=== PATIENT | male | born 2000 | race Caucasian/White ===

== ENCOUNTER 2020-01-14 10:16 | Emergency (ER) | payer BC, SELFPAY ==
[2020-01-14 10:22] VITALS: BP 124/76; PULSE 64; RESP 16; TEMP 36.7; O2SAT 98
[2020-01-14 10:37] LABS: Basophils Percent Auto 0.3 % (0.2-1.2); Eosinophils Absolute Auto 0.1 K/mm3 (0-0.3); Eosinophils Percent Auto 1.2 % (0-4.4); Hematocrit 45.4 % (42.0-52.0); Hemoglobin 16.2 g/dL (14.0-18.0); Immature Granulocyte Absolute 0.02 K/mm3 (0.00-0.031); Immature Granulocyte Percent A 0.3 % (0-0.5); Lymphocytes Absolute Auto 1.77 K/mm3 (0.9-3.2); Lymphocytes Percent Auto 22.8 % (18.3-44.2); Mean Corpuscular HGB Conc 35.7 g/dl (32-36); Mean Corpuscular Hemoglobin 29.9 pg (26-34); Mean Corpuscular Volume 83.9 fl (80-100); Mean Platelet Volume 10.2 fl (7.4-10.4); Monocytes Absolute Auto 0.7 K/mm3 (0.1-0.6); Monocytes Percent Auto 8.9 % (2.6-8.5); Neutrophils Absolute Auto 5.2 K/mm3 (1.3-6.7); Neutrophils Percent Auto 66.5 % (45.5-73.1); Platelet Count Result 275 k/mm3 (150-375); Red Blood Count 5.41 M/mm3 (4.6-6.20); Red Cell Distribution Width 12.2 % (11.5-14.5); White Blood Count 7.8 K/mm3 (4.5-10.0)
[2020-01-14 10:47] LABS: INR 1.1; Prothrombin Time 13.4 Seconds (11.1-14.7)
[2020-01-14 10:48] LABS: Partial Thromboplastin Time 28.9 SECONDS (22.3-36.8)
[2020-01-14 10:52] LABS: Alanine Aminotransferase 87 U/L (4-50); Albumin Level 4.7 g/dL (3.7-5.6); Alkaline Phosphatase 74 U/L (58-237); Anion Gap 8 mmol/L (8-16); Aspartate Amino Transferase 41 U/L (17-59); Bilirubin,Total 0.4 mg/dL (0.2-1.3); Blood Urea Nitrogen 12 mg/dL (8-21); Calcium 8.7 mg/dL (8.9-10.7); Carbon Dioxide 26 mmol/L (22-30); Chloride 105 mmol/L (98-107); Estimated CRCL calculation 151 ml/min; Estimated Glomerular Filt Rate > 60; Glucose 95 mg/dL (75-110); Potassium 4.1 mmol/L (3.4-5.0); Sodium 139 mmol/L (134-143)
[2020-01-14 11:55] VITALS: BP 129/72; PULSE 73; RESP 18; TEMP 37.2; O2SAT 97
[2020-01-14 12:11] VITALS: BP 120/69; PULSE 71
[2020-01-14 12:12] VITALS: BP 128/84; BP 132/82; PULSE 74; PULSE 80
--- NOTE | 2020-01-14 12:25 | ED.GENADULT ---
HPI - General Adult General Chief complaint: GI Bleed <Dinh Flanagan PA-C - Last Filed: 01/14/20 13:08> Stated complaint: possible internal issues <Dinh Flanagan PA-C - Last Filed: 01/14/20 13:08> Time Seen by Provider: 01/14/20 12:08 <Dinh Flanagan PA-C - Last Filed: 01/14/20 13:08> Source: patient <Dinh Flanagan PA-C - Last Filed: 01/14/20 13:08> Mode of arrival: ambulatory <Dinh Flanagan PA-C - Last Filed: 01/14/20 13:08> Limitations: no limitations <Dinh Flanagan PA-C - Last Filed: 01/14/20 13:08> History of Present Illness HPI narrative: Patient is a 19-year-old male who presents to emergency department for evaluation of rectal bleeding noticed over the last couple of days patient notes he has been constipated and straining has had a similar occurrence in the past patient does also note he has a history of external hemorrhoids secondary to constipation and straining patient does not have a primary care doctor or specialist and has not taken anything for his symptoms patient denies any pain patient presents in no distress and does not appear uncomfortable <Dinh Flanagan PA-C - Last Filed: 01/14/20 13:08> Related Data Allergies/adverse reactions: Allergies Allergy/AdvReac Type Severity Reaction Status Date / Time No Known Allergies Allergy Verified 01/14/20 12:09 <Dinh Flanagan PA-C - Last Filed: 01/14/20 13:08> Review of Systems Review of Systems: All systems reviewed & are unremarkable except as noted in HPI and below <Dinh Flanagan PA-C - Last Filed: 01/14/20 13:08> PMFSH Social History Social History: Social History (Updated 01/14/20 @ 12:25 by Dinh Flanagan PA-C) Smoking status: Never smoker Gender identity (if verbalized by the patient): Male <JOSUÉ Guajardo Last Filed: 01/14/20 13:08> Exam Narrative: Exam Narrative: GENERAL: Well-appearing, well-nourished, and in no acute distress. HEAD: Normocephalic, atraumatic. EYES: PERRLA and EOMI. ENT: Nares clear, no rhinorrhea or epistaxis. Mucous membranes moist. Oropharynx without tonsillar hypertrophy exudate or other lesions. Bilateral TMs pearly nelson nonbulging NECK: Supple. No adenopathy or masses. No carotid bruits or JVD CHEST: Clear to auscultation. No respiratory distress. No wheezes rales or rhonchi HEART: Regular rate and rhythm. No murmur heard. Normal peripheral pulses. ABDOMEN: Soft, nontender, nondistended, normal active bowel sounds. EXTREMITIES: Normal range of motion. No edema. SKIN: Warm, dry, no rash. NEURO: No focal deficits. Alert and oriented x3. PSYCH: Normal mood and affect. <JOSUÉ Guajardo Last Filed: 01/14/20 13:08> Course Course Emergency Course: No high risk changes in the orthostatic blood pressure or laboratory findings patient was made aware of these <JOSUÉ Guajardo Last Filed: 01/14/20 13:08> Vital Signs Vital signs: Vital Signs Temperature 36.7 C 01/14/20 10:22 Pulse Rate 64 01/14/20 10:22 Respiratory Rate 16 01/14/20 10:22 Blood Pressure 124/76 01/14/20 10:22 Pulse Oximetry 98 01/14/20 10:22 Temperature 37.2 C 01/14/20 11:55 Pulse Rate 60 01/14/20 13:38 Respiratory Rate 16 01/14/20 13:38 Blood Pressure 117/77 01/14/20 13:38 Pulse Oximetry 97 01/14/20 13:38 <JOSUÉ Guajardo Last Filed: 01/14/20 13:08> Vital Signs Temperature 36.7 C 01/14/20 10:22 Pulse Rate 64 01/14/20 10:22 Respiratory Rate 16 01/14/20 10:22 Blood Pressure 124/76 01/14/20 10:22 Pulse Oximetry 98 01/14/20 10:22 Temperature 37.2 C 01/14/20 11:55 Pulse Rate 60 01/14/20 13:38 Respiratory Rate 16 01/14/20 13:38 Blood Pressure 117/77 01/14/20 13:38 Pulse Oximetry 97 01/14/20 13:38 <Mckenna Loyd MD - Last Filed: 01/14/20 14:33> Medical Decision Making MDM Narrative Medical decision making narrative: Pat
[2020-01-14 13:38] VITALS: BP 117/77; PULSE 60; RESP 16; O2SAT 97
== END 2020-01-14 13:41 | disposition home or self-care (01) ==
PROVIDERS: Emergency Provider Emergency Medicine; PCP Pediatrics
DX: K62.5 Hemorrhage of anus and rectum (principal)
CPT/HCPCS: 36415; 80053; 85025; 85610; 85730; 86850; 86900; 86901; 99283

== ENCOUNTER 2022-06-09 13:49 | Emergency (ER) | payer OTHER, SELFPAY ==
--- NOTE | ~2022-06-09 | XR_ITS ---
EXAMINATION: XR chest 2V DATE: 06/09/2022 14:06 INDICATION: Chest pain TECHNIQUE: Frontal and lateral views of the chest are obtained COMPARISON: None available FINDINGS: The lungs are free of acute opacities. No pleural effusion or pneumothorax. The cardiomedia stinal silhouette is normal. The visualized bones and soft tissues are unremarkable. IMPRESSION: 1. No acute cardiopulmonary abnormality. Reviewed, dictated and finalized at location A. CCO EDUCATOR
--- NOTE | 2022-06-09 13:50 | ECG_ITS ---
Measurements Intervals Adrian Rate: 75 P: 37 CT: 135 QRS: 90 QRSD: 117 T: 44 QT: 362 QTc: 404 Interpretive Statements SINUS RHYTHM WITH SINUS ARRHYTHMIA INCOMPLETE RIGHT BUNDLE BRANCH BLOCK [90+ ms QRS DURATION, TERMINAL R IN V1/V2, 40+ ms S IN I/aVL/V4/V5/V6] BORDERLINE ECG NO PREVIOUS ECG AVAILABLE FOR COMPARISON Electronically Signed On 06-10-2022 11:53:49 [employer] APPLICATION ENGINEER by All Hernandez M.D.
[2022-06-09 14:07] VITALS: BP 135/73; PULSE 78; RESP 16; TEMP 36.8; O2SAT 99
[2022-06-09 14:17] LABS: Basophils Percent Auto 0.2 % (0.2-1.2); Eosinophils Percent Auto 0.2 % (0-4.4); Hematocrit 48.3 % (42.0-52.0); Hemoglobin 16.7 g/dL (14.0-18.0); Immature Granulocyte Absolute 0.01 K/mm3 (0.00-0.031); Immature Granulocyte Percent A 0.1 % (0-0.5); Lymphocytes Absolute Auto 1.57 K/mm3 (0.9-3.2); Lymphocytes Percent Auto 17.3 % (18.3-44.2); Mean Corpuscular HGB Conc 34.6 g/dl (32-36); Mean Corpuscular Volume 86.9 fl (80-100); Mean Platelet Volume 9.6 fl (7.4-10.4); Monocytes Absolute Auto 0.6 K/mm3 (0.1-0.6); Monocytes Percent Auto 6.6 % (2.6-8.5); Neutrophils Absolute Auto 6.8 K/mm3 (1.3-6.7); Neutrophils Percent Auto 75.6 % (45.5-73.1); Platelet Count Result 292 k/mm3 (150-375); Red Blood Count 5.56 M/mm3 (4.6-6.20); Red Cell Distribution Width 12.4 % (11.5-14.5); White Blood Count 9.1 K/mm3 (4.5-10.0)
[2022-06-09 14:27] LABS: Alanine Aminotransferase 48 U/L (6-50); Albumin Level 4.8 g/dL (3.5-5.1); Alkaline Phosphatase 55 U/L (38-126); Anion Gap 6 mmol/L (8-16); Aspartate Amino Transferase 27 U/L (17-59); Bilirubin,Total 0.5 mg/dL (0.2-1.3); Blood Urea Nitrogen 8 mg/dL (9-20); Calcium 8.9 mg/dL (8.4-10.2); Carbon Dioxide 31 mmol/L (22-30); Chloride 98 mmol/L (98-107); Estimated CRCL calculation 148 ml/min; Estimated Glomerular Filt Rate > 60; Glucose 115 mg/dL (65-110); Lipase 80 U/L (23-300); Potassium 3.8 mmol/L (3.4-5.0); Sodium 135 mmol/L (137-145)
[2022-06-09 14:28] LABS: INR 1.1; Prothrombin Time 13.5 Seconds (11.1-14.7)
[2022-06-09 14:29] LABS: Partial Thromboplastin Time 27.3 SECONDS (22.3-36.8)
[2022-06-09 14:39] LABS: Troponin I < 0.012 ng/mL (0.000-0.034)
[2022-06-09 16:21] VITALS: BP 132/79; PULSE 89; RESP 16; O2SAT 100
[2022-06-09 16:22] VITALS: PULSE 89
--- NOTE | 2022-06-09 16:25 | ED.CHESTPAIN ---
HPI - Chest Pain General Chief Complaint: Chest Pain Stated Complaint: chest pain since last night Time Seen by Provider: 06/09/22 16:04 History of Present Illness HPI narrative: Patient is a 22-year-old male here for evaluation of chest pain over the past day. Patient states that he was at rest when he developed a central chest pressure that has been constant in nature since. He states that this was associated with palpitations and mild shortness of breath. He denies a history of previous similar sensation. He has had no fever, chills, nausea, vomiting, leg swelling, or rash. He was in his usual state of health yesterday before the pain developed. He does state that he smoked marijuana last night. No family history of sudden cardiac /cardiac disease. Related Data Allergies Allergy/AdvReac Type Severity Reaction Status Date / Time No Known Allergies Allergy Verified 06/09/22 14:09 Review of Systems Review of Systems: Gen: Denies fevers or chills Eyes: Denies eye pain or visual change ENT: Denies congestion Respiratory: Reports shortness of breath CV: Reports chest pain GI: Denies abdominal pain nausea, emesis or diarrhea denies burning, urgency, frequency or hematuria Musculoskeletal: Denies back pain or muscle pain Neuro: Denies numbness, tingling, weakness or focal weakness Skin: Denies rash Except as documented, all other systems reviewed and negative PMFSH Social History Social History (Updated 01/14/20 @ 12:25 by Dinh Flanagan, JOSUÉ) Smoking status: Never smoker Gender identity (if verbalized by the patient): Male Exam Narrative: APPEARANCE: Well appearing, no pain in distress, well-nourished. Head: Normocephalic and atraumatic. EYES: PERRLA/EOMI, conjunctivae clear NOSE: No nasal drainage EARS: External ear normal in appearance THROAT: Oropharynx is clear. Mucous membranes are moist. NECK: Supple. No adenopathy, no masses. RESPIRATORY: Airway patent, respirations nonlabored. Clear to auscultation bilaterally, no rales, rhonchi, wheezing. CARDIOVASCULAR: Regular rate and rhythm without murmurs, rubs, or gallops. ABDOMINAL: Normoactive bowel sounds. Soft, nontender, nondistended. No rebound tenderness or guarding. MUSCULOSKELETAL: No reproducible chest pain on palpation of the thorax. Extremities are warm and well-perfused. Moves all extremities well. No edema. NEURO: Normal speech. No focal neurologic deficits. SKIN: Skin is warm and dry. No rashes. PSYCHIATRIC: Normal affect/mood. Course Vital Signs Vital signs: Vital Signs Temperature 98.3 F 06/09/22 14:07 Pulse Rate 78 06/09/22 14:07 Respiratory Rate 16 06/09/22 14:07 Blood Pressure 135/73 06/09/22 14:07 Pulse Oximetry 99 06/09/22 14:07 Temperature 98.3 F 06/09/22 14:07 Pulse Rate 93 06/09/22 18:10 Respiratory Rate 18 06/09/22 18:10 Blood Pressure 111/83 06/09/22 18:10 Pulse Oximetry 98 06/09/22 18:10 MDM - Chest Pain MDM Narrative Medical decision making narrative: 22-year-old male here for evaluation of chest pain since last night. He is nontoxic in appearance and has normal vital signs. His EKG and troponin are nonischemic. Dimer is negative, doubt PE. Chest x-ray is clear. Highly suspect anxiety is contributing to patient's symptoms, especially given that he smoked marijuana last evening. There is no suicidal ideation or homicidal ideation. Patient was given Maalox in the ED with improvement of his symptoms as well, so there may be an acid reflux component. He will be discharged home to follow-up with his primary care doctor, return precautions were discussed and he voiced understanding. Lab Data 06/09/22 13:59 06/09/22 13:59 Labs: Lab Results 06/09/22 06/09/22 06/09/22 Range/Units 13:59 13:59 13:59 WBC 9.1 (4.5-10.0) K/mm3 RBC 5.56 (4.6-6.20) M/mm3 Hgb 16.7 (14.0-18.0) g/dL Hct 48.3 (42.0-52.0) % MCV 86.9 (80-1
[2022-06-09 16:46] LABS: D Dimer 0.45 ug/mL (<0.48)
[2022-06-09] MEDS: MAG HYDROX/AL HYDROX/SIMETH 30 ML UDC PO (16:58)
[2022-06-09 17:24] LABS: Troponin I < 0.012 ng/mL (0.000-0.034)
[2022-06-09 18:10] VITALS: BP 111/83; PULSE 93; RESP 18; O2SAT 98
== END 2022-06-09 18:12 | disposition home or self-care (01) ==
PROVIDERS: Emergency Medicine; Emergency Provider Physician Assistant; PCP Pediatrics
DX: F41.9 Anxiety disorder, unspecified (principal); I45.10 Unspecified right bundle-branch block
CPT/HCPCS: 36415; 71046; 80053; 83690; 84484; 85025; 85380; 85610; 85730; 93005; 99284; A9270

== ENCOUNTER 2025-02-25 10:16 | Emergency (ER) | payer BC, SELFPAY ==
--- NOTE | ~2025-02-25 | CT_ITS ---
EXAMINATION: CT abdomen pelvis w con DATE: 02/25/2025 12:40 INDICATION: Rectal pain. Assess for rectal abscess. TECHNIQUE: Computed tomography (CT) of the abdomen and pelvis was performed with 100 mL Omnipaque-350 intravenous contrast. Automated exposure control and iterative reconstruction technique were employed. The dose-length product was 500.70 mGy-cm. COMPARISON: None FINDINGS: Lung bases are clear. Heart size normal. No pericardial or pleural effusion. Diffuse hepatic steatosis. Gallbladder, spleen, pancreas, bilateral adrenal glands and kidneys are normal. Bladder is normal. There is diffuse fatty infiltration of the wall of the colon which could be due to body habitus or s equela of chronic inflammation. Small bowel and appendix are normal. No evident perirectal/perianal abscess. No free intraperitoneal gas or fluid. No pathologically enlarged abdominal or pelvic lymphadenopathy. Mild lower thoracic spondylosis. IMPRESSION: 1. No perirectal/perianal abscess or other acute intra-abdominal/pelvic process. Reviewed, dictated and finalized at location A. IMPRESSION: 1. No perirectal/perianal abscess or other acute intra-abdominal/pelvic process .
[2025-02-25 10:18] VITALS: BP 137/77; PULSE 88; RESP 18; TEMP 36.7
[2025-02-25 11:04] VITALS: BP 124/86; PULSE 77; RESP 16; TEMP 36.4; O2SAT 100
[2025-02-25] MEDS: fentaNYL CITRATE INJ (*CRX) 100 MCG/2 ML VIAL 25 MCG IV PUSH (11:51)
--- NOTE | 2025-02-25 11:51 | ED_ITS ---
HPI - Skin/Abscess/Foreign Bdy General Chief complaint: Skin/Abscess/Foreign Body Stated complaint: Rectal abcess Time Seen by Provider: 02/25/25 11:18 Source: patient and RN notes reviewed Mode of arrival: ambulatory Limitations: no limitations History of Present Illness HPI narrative: 25-year-old male presents to the ER complaining of rectal pain started 2 days ago. Patient says he has a history of rectal abscesses required surgery in the past common also has a history of hemorrhoids. Patient's daughter was a hemorrhoid. In preparation H on it. Since then he has develops worsening pain to his rectum. She denies any fevers, by exam chills, nausea vomiting, change in bowel habits, black tarry stools, bloody stools, rales symptoms. Related Data Allergies Allergy/AdvReac Type Severity Reaction Status Date / Time No Known Allergies Allergy Verified 02/25/25 10:23 Review of Systems 2 Review of Systems: CONSTITUTIONAL: Denies fever, body aches, chills, or sweats. EYES: Denies visual changes, redness, or discharge. ENT: Denies rhinorrhea, congestion, sore throat, or otalgia. CARDIOVASCULAR: Denies chest pain, palpitations, or edema. RESPIRATORY: Denies cough or dyspnea. GASTROINTESTINAL: Denies abdominal pain, nausea, vomiting, or diarrhea. Positive for rectal pain. GENITOURINARY: Denies dysuria or hematuria. SKIN: Denies rash or itching. MUSCULOSKELETAL: Denies back pain, joint pain, or myalgia. NEUROLOGIC: Denies headache, numbness, or weakness. PSYCHIATRIC: Denies anxiety or depression. All other systems reviewed are negative, except as documented in HPI. PMFSH Social History Social History Smoking status: Never smoker Gender identity (if verbalized by the patient): Male Comments At the time of my signature, I reviewed and agree with the nursing past medical, surgical, social, and family history. There is no relevant family history pertinent to the patient complaint. Exam 2 Narrative: GENERAL: This is a well-nourished, well-developed adult, in no apparent distress. They are non ill-appearing, nontoxic appearing. Patient appears to be uncomfortable. HEAD: normocephalic, atraumatic. EYES: Sclera clear/white. Conjunctiva normal. Vision is grossly intact. Extraocular movements intact EARS: External ears normal, Hearing grossly intact. NOSE: External nose normal THROAT: Mucous membranes moist, NECK: Neck supple, CARDIOVASCULAR: Regular rate and rhythm RESPIRATORY: Respiratory rate normal, respiratory effort nonlabored, no respiratory distress GASTROINTESTINAL: Abdomen soft, non-tender, nondistended. Perirectal: Chantal R.N. present in room during rectal exam, External hemorrhoid present, it is black and blue, it is firm to palpation, severe tenderness to palpation. No area of fluctuance or induration or swelling to the rectum. SKIN: warm, Dry, intact with no suspicious lesions or rash, good texture and turgor. NEURO: awake, alert, and oriented to person, place and time. There were no obvious focal neurologic abnormalities. EXTREMITIES: No joint tenderness, effusion, or edema noted. Course Course Emergency Course: Portions of this record may have been created with voice recognition software Vital Signs Vital signs: Vital Signs Temperature 98.0 F 02/25/25 10:18 Pulse Rate 88 02/25/25 10:18 Respiratory Rate 18 02/25/25 10:18 Blood Pressure 137/77 02/25/25 10:18 Temperature 97.6 F 02/25/25 11:04 Pulse Rate 75 02/25/25 13:44 Respiratory Rate 15 02/25/25 13:44 Blood Pressure 134/79 02/25/25 13:44 Pulse Oximetry 99 02/25/25 13:44 Oxygen Delivery Room Air 02/25/25 11:04 Reviewed Procedures Abscess I/D other: Date of Incision: 02/25/25 Time of Incision: 13:30 Side (if applicable): right (External hemorrhoid) Sedation/analgesia: none Local Anesthetic: lidocaine 1% and with epi Amount of anesthesia used (mL): 4 Technique: incised with #11 blade Irrigation: No Packing used?: iodoform I&D Results: Blood and Other (Thrombus) Abcess I&D Additional Comments: Patient tolerated procedure well. Small thrombus removed. MDM - Skin/Abscess/Foreign Bdy MDM Narrative Medical decision making narrative: No evidence of abscess formation the patient's rectum, appears to be a thrombosed hemorrhoid. Given patient's history he would like lab work and imaging to rule out any acute perirectal abscess. CBC very mild leukocytosis, negative lactic acidosis, chemistry with elevated liver enzymes. CT abdomen pelvis reveals no perirectal abscess, incidental finding of fatty liver infiltrates. Patient sources drinking a lot of alcohol has a family history of cirrhosis. Advised patient to stop drinking alcohol. Discussed conservative management of patient's hemorrhoid versus incision and drainage to provide rapid pain relief. Patient elected and gave verbal consent to incision and drain the thrombus hemorrhoid. Successful incision and drainage of thrombosed hemorrhoid, small thrombus present, with blood. Patient reports improvement of pain. Discussed supportive care for hemorrhoid, will give a referral to General surgery about his hemorrhoid. Discussed physical exam findings. Advised supportive measures and signs/symptoms to go to the ER. Pt is appropriate for outpt treatment and f/u. Differential Diagnosis Differential diagnosis: Likely abscess of skin or subcutaneous tissue and other (Hemorrhoids,, warts,, perirectal abscess) Lab Data Attestation: I reviewed the patient's lab results. 02/25/25 11:47 02/25/25 11:47 Labs: Lab Results 02/25/25 Range/Units 11:47 WBC 10.6 H (4.5-10.0) K/mm3 RBC 5.19 (4.6-6.20) M/mm3 Hgb 16.6 (14.0-18.0) g/dL Hct 45.6 (42.0-52.0) % MCV 87.9 (80-100) fl MCH 32.0 (26-34) pg MCHC 36.4 H (32-36) g/dl RDW 12.1 (11.5-14.5) % Plt Count 281 (150-375) k/mm3 MPV 9.8 (7.4-10.4) fl Immature Gran % (Auto) 0.4 (0-0.5) % Neut % (Auto) 81.3 H (45.5-73.1) % Lymph % (Auto) 11.3 L (18.3-44.2) % [place]barger % (Auto) 6.4 (2.6-8.5) % Eos % (Auto) 0.4 (0-4.4) % Baso % (Auto) 0.2 (0.2-1.2) % Lymph # (Auto) 1.20 (0.9-3.2) K/mm3 Wilbarger # (Auto) 0.7 H (0.1-0.6) K/mm3 Eos # (Auto) 0.0 (0-0.3) K/mm3 Baso # (Auto) 0.0 (0.0-0.1) K/mm3 Abs Immat Gran (auto) 0.04 H (0.00-0.031) K/mm3 Absolute Neuts (auto) 8.7 H (1.3-6.7) K/mm3 Absolute Nucleated RBC 0.000 (0.0-0.012) K/mm3 Nucleated RBC % 0.0 (0.0-0.2) % Sodium 137 (137-145) mmol/L Potassium 3.5 (3.4-5.0) mmol/L Chloride 100 (98-107) mmol/L Carbon Dioxide 26 (22-30) mmol/L Anion Gap 11 (4-12) mmol/L BUN 6 L (9-20) mg/dL Creatinine 0.63 L (0.7-1.3) mg/dL Estim Creat Clear Calc 142 ml/min Estimated GFR > 60 (59 - ) Glucose 85 (65-110) mg/dL Lactic Acid 1.2 (0.7-2.0) mmol/L Calcium 8.6 (8.4-10.2) mg/dL Total Bilirubin 1.2 (0.2-1.3) mg/dL AST 113 H (17-59) U/L ALT 185 H (6-50) U/L Alkaline Phosphatase 78 (38-126) U/L Total Protein 8.0 (6.3-8.2) g/dL Albumin 4.8 (3.5-5.1) g/dL Imaging Data Radiologist's impression: ITS Impressions Abdomen/Pelvis CT 02/25/25 12:42 IMPRESSION: 1. No perirectal/perianal abscess or other acute intra-abdominal/pelvic process. Critical Care Time Critical Care Time Critical Care Time: No Discharge Plan Discharge Clinical Impression: External hemorrhoid, thrombosed, Fatty infiltration of liver Patient Disposition: Home Condition: Stable Instructions: Thrombosed Hemorrhoid (ED), Chronic Liver Disease (ED) Additional Instructions: Your CT abdomen pelvis shows no evidence of any perirectal abscess. Your lab work showed elevated liver enzymes your CT did show a fatty liver. Please stop drinking alcohol. The thrombosis was removed at of your hemorrhoid today. You may remove the packing later this evening or tomorrow morning or allowed to follow on its own. After you have a bowel movement please take a shower to clean the area to prevent any infection. Use preparation H help shrink the hemorrhoid you may use of her maximum 2 weeks at a time. When you have a bowel movement apply topical lidocaine you can buy [id number] then apply a shaving cream to the rectum then have your bowel movement. Take Metamucil nightly. Consume plenty of fiber in your diet. May also use the Sitz bath to help with the hemorrhoid pain. Follow-up with your PCP in 3-5 days. A follow- up with a general surgeon for your hemorrhoids. Return to the ER for any severe pain, swelling, fevers, body aches and chills, black tarry stools or any serious concerns. Patient Language: Tamazight Follow-up/Referrals: María Elena,MD Stef [Non-Staff, Pediatrics] Rusty Layne DO [Physician, General Surgery] Stand Alone Forms: Work/School Release IP Time of Disposition: 13:37
[2025-02-25 11:55] LABS: Hematocrit 45.6 % (42.0-52.0); Hemoglobin 16.6 g/dL (14.0-18.0); Immature Granulocyte Percent A 0.4 % (0-0.5); Lymphocytes Absolute Auto 1.20 K/mm3 (0.9-3.2); Mean Corpuscular HGB Conc 36.4 g/dl (32-36); Mean Corpuscular Hemoglobin 32.0 pg (26-34); Mean Corpuscular Volume 87.9 fl (80-100); Nucleated Red Blood Cells Absolute Auto 0.000 K/mm3 (0.0-0.012); Nucleated Red Blood Cells Perc 0.0 % (0.0-0.2); Platelet Count Result 281 k/mm3 (150-375); Red Blood Count 5.19 M/mm3 (4.6-6.20); White Blood Count 10.6 K/mm3 (4.5-10.0)
[2025-02-25 12:08] LABS: Alanine Aminotransferase 185 U/L (6-50); Albumin Level 4.8 g/dL (3.5-5.1); Alkaline Phosphatase 78 U/L (38-126); Anion Gap 11 mmol/L (4-12); Aspartate Amino Transferase 113 U/L (17-59); Bilirubin,Total 1.2 mg/dL (0.2-1.3); Blood Urea Nitrogen 6 mg/dL (9-20); Calcium 8.6 mg/dL (8.4-10.2); Carbon Dioxide 26 mmol/L (22-30); Chloride 100 mmol/L (98-107); Estimated CRCL calculation 142 ml/min; Estimated Glomerular Filt Rate > 60; Glucose 85 mg/dL (65-110); Potassium 3.5 mmol/L (3.4-5.0); Sodium 137 mmol/L (137-145); Total Protein 8.0 g/dL (6.3-8.2)
[2025-02-25] MEDS: KETOROLAC 30 MG/ML VIAL (*BKC) IV PUSH (12:45)
[2025-02-25 13:44] VITALS: BP 134/79; PULSE 75; RESP 15; O2SAT 99
== END 2025-02-25 13:51 | disposition home or self-care (01) ==
DX: K64.5 Perianal venous thrombosis (principal); K76.0 Fatty (change of) liver, not elsewhere classified
CPT/HCPCS: 36415; 46083; 74177; 80053; 83605; 85025; 96374; 96375; 99284; J1885; J3010; Q9967